=== PATIENT | male | born 1955 | race Caucasian/White ===

== ENCOUNTER 2022-04-13 05:47 | Emergency (ER) | payer MEDICARE, BC ==
[~2022-04-13] VITALS: Ht 172.7 cm; Wt 90.9 kg
[2022-04-13] MEDS ORDERED: triamcinolone acetonide 40mg/ml inj IM ONE (07:45)
--- NOTE | 2022-04-13 10:05 | NUR ---
TO MRI AT THIS TIME VIA WHEELCHAIR.
--- NOTE | 2022-04-13 11:03 | NUR ---
PATIENT UNABLE TO TOLERATE MRI R/T BACK PAIN, DR SHAHID MADE AWARE.
[2022-04-13] MEDS ORDERED: HYDROcodone/acetaminophen 10/325mg tab PO ONE ×2 (11:05→11:50)
[2022-04-13] MEDS ORDERED: morphine 10mg/ml inj. IM ONE (13:00)
[2022-04-13] MEDS ORDERED: diazepam inj 5 MG/ML inj. IV ONE (14:20)
--- NOTE | 2022-04-13 14:22 | NUR ---
PT UNABLE TO LAY FLAT FOR MRI, OBTAINED VALIUM 5MG ORDER BY DR. SHAHID.
--- NOTE | 2022-04-13 14:54 | NUR ---
TO MRI VIA WHEELCHAIR.
[2022-04-13] MEDS ORDERED: METH4TAB81 PO (18:41)
[2022-04-13] MEDS ORDERED: TRAM50TA2 PO (18:41)
[2022-04-13] MEDS ORDERED: NAPR-56 PO (18:41)
[2022-04-13] MEDS ORDERED: traMADol 50MG tablet PO ONE (18:45)
[2022-04-13 18:58] VITALS: BP 154/85
== END 2022-04-13 19:02 | disposition home or self-care (01) ==
LOC: ER 05:48
DX: M51.26 Other intervertebral disc displacement, lumbar region (principal); E78.00 Pure hypercholesterolemia, unspecified; I10 Essential (primary) hypertension; Z79.899 Other long term (current) drug therapy
CPT/HCPCS: 72131; 72148; 96372; 96374; 99285; J2274; J3301; J3360